=== PATIENT | female | born 1985 | race Caucasian/White ===

== ENCOUNTER 2020-12-09 01:53 | Emergency (ER) | payer OTHER ==
[~2020-12-09] VITALS: Ht 162.6 cm; Wt 56.7 kg
[2020-12-09 02:37] LABS: CALCIUM 8.9 mg/dL (8.5-10.1); CREATININE 0.7 mg/dL (0.6-1.0); POTASSIUM 3.9 mmol/L (3.5-5.1)
[2020-12-09 03:54] LABS: URINE BILIRUBIN NEGATIVE (Negative); URINE BLOOD 1+ (Negative); URINE CLARITY CLEAR; URINE COLOR YELLOW; URINE GLUCOSE-RANDOM* NEGATIVE (Negative); URINE KETONES 1+ (Negative); URINE LEUKOCYTES-REFLEX NEGATIVE (Negative); URINE NITRITE-REFLEX NEGATIVE (Negative); URINE PROTEIN (DIPSTICK) NEGATIVE (Negative); URINE SPECIFIC GRAVITY <= 1.005 (1.005-1.035); URINE UROBILINOGEN 0.2 E.U./dl (0.2-1.0)
[2020-12-09 04:10] LABS: CASTS None Seen /LPF (None Seen); MUCUS 0-3 Light strn/LPF (None Seen); SQUAMOUS 0-3 Few /LPF (0-3)
[2020-12-09 04:11] LABS: CRYSTALS None Seen /LPF (None Seen); URINE RBC 3-10 Few /HPF (NONE SEEN); URINE WBC-REFLEX 0-5 Rare /HPF (0-5)
[2020-12-09] MEDS ORDERED: PEPCID20 MG PO (05:56)
[2020-12-09 07:13] VITALS: BP 117/67
--- NOTE | 2020-12-10 12:38 | EKG ---
[address] [address] ELECTROCARDIOGRAM REPORT Name: IFEOMA WREN [id number] Admission: 12/09/20 Attend Phys: Discharge: 12/09/20 Date of : 87 Report #: [id number] [facility] ED Test Date: 2020-12-09 Test Time: 01:59:42 Pat Name: IFEOMA OH Department: Room: Gender: F Manager Zone: : 1985 Requested By: Mika Borjas Order Number: [id number] MD: Elton Frey Measurements Intervals [place]aka Rate: 82 P: 71 CA: 151 QRS: 73 QRSD: 88 T: 43 QT: 372 QTc: 435 Interpretive Statements Sinus rhythm Normal tracing No previous ECG available for comparison Electronically Signed On 12-10-2020 12:37:52 CDT by Elton Frey [email or web address] <ELECTRONICALLY SIGNED> By: Elton Frey MD, [facility] 12/10/20 [id number] [id number] Elton Frey MD, FACC /EPI
== END 2020-12-09 07:13 | disposition home or self-care (01) ==
LOC: ER 01:53
PROVIDERS: Student in an Organized Health Care Education/Training Program
DX: R07.89 Other chest pain (principal)